=== PATIENT | female | born 2000 | race Hispanic/Latino ===

== ENCOUNTER 2022-10-17 00:35 | Emergency (ER) | payer OTHER ==
[~2022-10-17] VITALS: Ht 147.3 cm; Wt 49.9 kg
[2022-10-17] MEDS ORDERED: IBUPROFEN 400 MG TAB PO ONE (01:00)
[2022-10-17] MEDS ORDERED: ONDANSETRON HCL 4 MG ORAL DISINTEGRATING TAB PO ONE (01:00)
[2022-10-17] MEDS ORDERED: FIORICET 50-301 EACH PO (01:04)
[2022-10-17] MEDS ORDERED: ONDANSETRON ODT4 MG PO (01:04)
[2022-10-17] MEDS ORDERED: ONDANSETRON HCL 4 MG ORAL DISINTEGRATING TAB ONE (01:10)
[2022-10-17] MEDS ORDERED: IBUPROFEN 400 MG TAB ONE (01:10)
== END 2022-10-17 01:40 | disposition home or self-care (01) ==
LOC: FSED 00:44
DX: R51.9 Headache, unspecified (principal); R11.0 Nausea
CPT/HCPCS: 99283; Q0162